=== PATIENT | male | born 1970 | race Caucasian/White ===

== ENCOUNTER 2020-09-18 10:34 | Outpatient (REF) | payer OTHER, SELFPAY ==
--- NOTE | 2020-09-18 10:40 | XR_ITS ---
EXAMINATION: XR SHOULDER, RIGHT CLINICAL INFORMATION: Pain in right shoulder COMPARISON: None TECHNIQUE: Three views of the right shoulder. FINDINGS: No fracture or dislocation. The glenohumeral joint is well aligned. The joint space is maintained. The acromioclavicular joint is intact with mild hypertrophic degenerative change. The visualized lung is clear. The visualized ribs are intact. XR/XR shoulder RT min 2V IMPRESSION: Mild degenerative changes of the right acromioclavicular joint.
== END 2020-09-18 10:35 | disposition home or self-care (01) ==
LOC: HO.HOSX 10:34
PROVIDERS: Visit Provider Orthopaedic Surgery
DX: S46.001A Unspecified injury of muscle(s) and tendon(s) of the rotator cuff of right shoulder, initial encounter (principal); X58.XXXA Exposure to other specified factors, initial encounter; Y93.9 Activity, unspecified; Y92.9 Unspecified place or not applicable; Y99.8 Other external cause status
CPT/HCPCS: 73030; 99202

== ENCOUNTER → 2020-11-21 10:41 | Outpatient (BNVA) | payer OTHER, SELFPAY | PROVIDERS: Visit Provider Orthopaedic Surgery | DX: S46.111D Strain of muscle, fascia and tendon of long head of biceps, right arm, subsequent encounter (principal); S46.001D Unspecified injury of muscle(s) and tendon(s) of the rotator cuff of right shoulder, subsequent encounter | CPT/HCPCS: 20610; 99212; J1040 ==

== ENCOUNTER 2020-12-21 13:00 | Outpatient (RCR) | payer OTHER, SELFPAY ==
--- NOTE | 2020-09-26 14:08 | MHC.PT.EP ---
[facility] [place] Office [place] Office [place] Office [address] Nicole Anderson [address] [phone] F: [phone] F: [phone] F: [phone] F: [phone] Physical Therapy Plan of Care Date of Evaluation: 09/26/20 Date of Injury: 08/01/2020 Diagnosis: right shoulder pain, right long head biceps rupture. Assessment: Pt has reduced shoulder ROM, strength, and functional mobility. The patient also has painful motion over 90 degrees which limits personal hygiene and functional reaching. He is a good candidate for skilled PT. Some of his pain may also be from his AC joint which I will monitor. I will use PROM and manual therapy, AROM, pain free strengthening, and modalities as needed. Frequency and Duration: The patient will be seen 2x/week Short Term Goals: 1. Improve AROM greater than 100 degrees of shoulder abduction for functional reaching. 2. Pt to be able to move into functional ER motion greater than 60 degrees for personal hygiene. [place] Agent Goals: 4 weeks - The patient to have greater than 160 degrees of flexion and abduction to show imroved functional ROM. 4 weeks ? The patient to have 5/5 strength with flexion and abduction to demonstrate functional strength 4 weeks ? The patient to be able to return to all functional reaching, self care ADL's without any limitation from pain or loss of ROM. Treatment Plan: Modalities to reduce pain, spasms and effusion. Manual therapy to restore motion and function. Therapeutic exercise to improve strength and flexibility. Neuromuscular re-education for posture and balance. Therapeutic activities to return to functional activities of daily living. Please sign and return to therapist. Thank you for your referral.
--- NOTE | 2020-12-21 15:14 | MHC.PT.DC ---
[facility] [place] Office [place] Office [address] Orestes Anderson 140 [facility] [phone] F: [phone] F: [phone] F: [phone] F: [phone] Physical Therapy Discharge Report Diagnosis: right shoulder pain, right long head biceps rupture. Date of Surgery: Date of Evaluation: 09/26/20 Date of Discharge: 12/21/20 Treatments to Date: 15 Cancellations to Date: 0 No Shows to Date: 0 Discharge Status: Achieved Goals Improved Function Independent with HEP Discharge Summary: Please see tests and measures above. Pt is functionally independent. He has returned to high level overhead activity. He has normal strength in his shoulder and elbow, and nearly normal ROM in his shoulder. Pt was given an extensive HEP with 3 levels of therband ( red, yellow, green) He was given HEP consisting mostly of overhead endurance activities. I believe the patient to be independent with his HEP. He shows good form with his exercise program. He is d/c today to a HEP to continue his HEP with focus on end range movement, and overhead endurance. The patient has verbalized understanding of this education. He will return to his referring physician on January 16 2021 for f/u. He has been instructed to contact us if his condition worsens. Electronically signed by: Izabela Mercedes PT DPT Please sign and return to therapist. Thank you for your referral.
== END 2021-01-11 15:22 | disposition other institution (70) ==
LOC: HO.PT 13:00
PROVIDERS: Visit Provider Orthopaedic Surgery
DX: S46.001D Unspecified injury of muscle(s) and tendon(s) of the rotator cuff of right shoulder, subsequent encounter (principal)
CPT/HCPCS: 97033; 97110; 97162; 97530; 97535

== ENCOUNTER → 2021-01-16 09:47 | Outpatient (BNVA) | payer OTHER, SELFPAY | PROVIDERS: Visit Provider Orthopaedic Surgery | DX: S46.111D Strain of muscle, fascia and tendon of long head of biceps, right arm, subsequent encounter (principal); S45.001 Unspecified injury of axillary artery, right side | CPT/HCPCS: 99212 ==

== ENCOUNTER 2021-03-06 13:00 | Outpatient (RCR) | payer OTHER, SELFPAY ==
--- NOTE | 2021-01-31 14:05 | MHC.PT.EP ---
[facility] [place] Office [place] Office [place] Office [address] Orestes Anderson [address] [phone] F: [phone] F: [phone] F: [phone] F: [phone] Physical Therapy Plan of Care Date of Evaluation: 01/31/21 Date of Surgery: N/A Diagnosis: Unspecified injury of the muscles and tendons of the rotator cuff in the right shoulder Assessment: Dallas is a 50-year-old man being referred to physical therapy with pain in his right shoulder. He demonstrates impaired R shoulder ROM, decreased R UE and scapular strength, impaired posture, and a possible retracted R bicep tendon. Pt would benefit from skilled physical therapy to address the aforementioned impairments and increase his tolerance to overhead reaching, lifting and carrying items, and sleeping through the night in order to improve his quality of life and facilitate his return to work. Dallas is motivated to participate in physical therapy in order to return to his PLOF. Frequency and Duration: The patient will be seen 2 visits per week for 5 weeks. Short Term Goals: -Pt will report <2/10 pain at rest to allow him to sleep through the night within 3 weeks. -Pt will be able to reach over head to wash his hair with a pain of no more than 2/10 in 3 weeks. [place] Worker Goals: -Pt will be able to lift >15 lbs. 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 -Pt will be independent with [facility] for symptom management and maintenance following discharge within 5 weeks. Treatment Plan: Modalities to reduce pain, spasms and effusion. Manual therapy to restore motion and function. Therapeutic exercise to improve strength and flexibility. Neuromuscular re-education for posture and balance. Therapeutic activities to return to functional activities of daily living. Electronically signed by: Jazzmine Renteria PT, DPT Please sign and return to therapist. Thank you for your referral.
--- NOTE | 2021-04-03 15:39 | MHC.PT.DC ---
[facility] [place] Office [place] Office [place] Office [address] Orestes Anderson 140 [facility] [phone] F: [phone] F: [phone] F: [phone] F: [phone] Physical Therapy Discharge Report Diagnosis: Unspecified injury of the muscles and tendons of the rotator cuff in the right shoulder Date of Surgery: N/A Date of Evaluation: 01/31/21 Date of Discharge: 04/03/21 Treatments to Date: 7 Cancellations to Date: 0 No Shows to Date: 0 Discharge Status: Achieved Goals Improved Function Independent with HEP Discharge Summary: Dallas has improved and is independent with all HEPs. He has therefore been d/c from therapy. Electronically signed by: Jazzmine Renteria PT DPT Please sign and return to therapist. Thank you for your referral.
== END 2021-04-03 15:40 | disposition other institution (70) ==
LOC: HO.PT 13:00
PROVIDERS: Visit Provider Orthopaedic Surgery
DX: S46.001D Unspecified injury of muscle(s) and tendon(s) of the rotator cuff of right shoulder, subsequent encounter (principal)
CPT/HCPCS: 97110; 97112; 97140; 97161; 97530

== ENCOUNTER → 2021-03-12 12:36 | Outpatient (BNVA) | payer OTHER, SELFPAY | PROVIDERS: Visit Provider Orthopaedic Surgery | DX: S46.111D Strain of muscle, fascia and tendon of long head of biceps, right arm, subsequent encounter (principal); S46.001D Unspecified injury of muscle(s) and tendon(s) of the rotator cuff of right shoulder, subsequent encounter | CPT/HCPCS: 99212 ==

== ENCOUNTER → 2021-04-30 12:27 | Outpatient (BNVA) | payer OTHER, SELFPAY | PROVIDERS: Visit Provider Orthopaedic Surgery | DX: S46.001D Unspecified injury of muscle(s) and tendon(s) of the rotator cuff of right shoulder, subsequent encounter (principal) | CPT/HCPCS: 99212 ==

== ENCOUNTER 2021-05-20 13:25 | Outpatient (REF) | payer OTHER, SELFPAY ==
--- NOTE | ~2021-05-20 | MR_ITS ---
EXAMINATION: MR SHOULDER WITH CONTRAST, RIGHT CLINICAL INFORMATION: Impingement syndrome of right shoulder. Patient reports lifting and felt a pop 07/22/2020 with arm swelling. Status post PT. Arm keeps swelling with activities, occasional pain, soreness, muscle spasm. COMPARISON: XR right shoulder 09/18/2020. MRI right shoulder from [facility] 08/25/2020. TECHNIQUE: MRI of the shoulder was performed following the intra-articular administration of a dilute gadolinium-containing solution (arthrogram) on a high-field scanner. FINDINGS: ROTATOR CUFF: There is no significant change in distal supraspinatus tendinosis with a small interstitial insertional tear measuring 4 mm transverse. This is difficult to identify and measure on the orthogonal images. The infraspinatus, teres minor, and subscapularis tendons are intact. No muscle atrophy or fatty infiltration. BICEPS: Complete tear and retraction of the long head of the biceps tendon is again noted. CORACOACROMIAL ARCH: The undersurface of the acromion is curved, slightly laterally downsloping, with no subacromial spur. There is no change in moderate osteoarthritis of the acromioclavicular joint. LABRUM/CAPSULE: The superior labrum is diffusely attenuated. This could be related to degeneration and possible chronic tear. The anterior and posterior labrum are grossly intact. The capsular structures are unremarkable. GLENOHUMERAL JOINT/MARROW: There is focal cartilage thinning in the superolateral humeral head. The glenoid cartilage appears intact. MR/MR shoulder RT w con IMPRESSION: 1. No significant change in mild distal supraspinatus tendinosis and small interstitial insertional tear. 2. No change in complete tear and retraction of the long head of the biceps tendon. 3. Diffuse superior labral attenuation which could be related to degeneration and possible chronic tear. 4. Focal mild arthrosis in the superolateral humeral head.
--- NOTE | ~2021-05-20 | FL_ITS ---
EXAMINATION: XR ARTHROGRAM SHOULDER, RIGHT CLINICAL INFORMATION: Right shoulder pain. COMPARISON: Arleta unsuccessful right shoulder arthrogram. TECHNIQUE: Following explaining fluoroscopy-guided right shoulder arthrogram procedure, benefits and risk, a written consent was obtained. Patient was placed supine on fluoroscopy table and anterior aspect of shoulder was cleaned and draped in usual sterile manner. 1% lidocaine was injected at the puncture site. A 22-gauge needle was inserted from the skin into the anterior glenohumeral joint space and 2 mL of nonionic contrast was injected. After confirming contrast into the joint space, 0.1 mL of gadolinium was dilated with 10 mL of 1% lidocaine and saline combination was injected and needle withdrawn. Patient tolerated procedure extremely well. Simple bandage applied at puncture site. FINDINGS: On a single obtained of anterior right shoulder joint reveals maintained and normal joint space. There is hard and contrast within the anterior glenohumeral joint. Fluoroscopy guided right arthrogram performed with injection of diluted gadolinium. Patient was sent to MRI for further imaging. FLUOROSCOPY TIME: 1.3 minutes DOSE AREA PRODUCT: 4.890 uGy-m2 (microgray-meter squared) FL/FL arthrogram shoulder RT IMPRESSION: Successful fluoroscopy-guided right shoulder arthrogram performed for MRI.
== END 2021-05-20 13:26 | disposition home or self-care (01) ==
LOC: HO.XRAY 13:25
PROVIDERS: Visit Provider Orthopaedic Surgery
DX: M75.41 Impingement syndrome of right shoulder (principal); S46.001D Unspecified injury of muscle(s) and tendon(s) of the rotator cuff of right shoulder, subsequent encounter
CPT/HCPCS: 23350; 73040; 73222; A9585

== ENCOUNTER → 2021-07-18 13:57 | Outpatient (BNVA) | payer OTHER, SELFPAY | PROVIDERS: Visit Provider Orthopaedic Surgery | DX: S46.111D Strain of muscle, fascia and tendon of long head of biceps, right arm, subsequent encounter (principal); S46.001D Unspecified injury of muscle(s) and tendon(s) of the rotator cuff of right shoulder, subsequent encounter | CPT/HCPCS: 99212 ==

== ENCOUNTER → 2021-08-19 12:23 | Outpatient (BNVA) | payer OTHER, SELFPAY | PROVIDERS: Visit Provider Physician Assistant | DX: Z01.818 Encounter for other preprocedural examination (principal); M19.011 Primary osteoarthritis, right shoulder; S46.001D Unspecified injury of muscle(s) and tendon(s) of the rotator cuff of right shoulder, subsequent encounter; S46.111D Strain of muscle, fascia and tendon of long head of biceps, right arm, subsequent encounter; X58.XXXD Exposure to other specified factors, subsequent encounter; F17.210 Nicotine dependence, cigarettes, uncomplicated | CPT/HCPCS: 99212 ==

== ENCOUNTER 2021-08-21 10:03 | Day surgery (SDC) | payer OTHER, MEDICAID, SELFPAY ==
[2021-08-15 12:24] VITALS: BMI 23.3
--- NOTE | 2021-08-20 09:10 | P.CONAN_ITS ---
Documented by User: Mary Willingham NP 08/20/21 15:33 HPI - Anesthesia Eval Consult details Narrative: 51yo M for Right Shoulder Arthroscopy, possible Rotator Cuff Repair T/C to pt to verify medical hx. No PCP/Insurance prior to moving here 1 year ago, therefore no routine medical eval. Appt to see new PCP at [facility] next month. Denies CP/SOB. Was working prior to injury. Case reviewed with Dr Vaughn. Labs and EKG DOS. PMFSH Active Problems Active Problems: All Active Problems (Updated 08/15/21 @ 12:26 by Padmini Perez RN) Injury of right rotator cuff (Acute) Labral tear of long head of right biceps tendon (Acute) Past Medical History Medical History Arthritis Smoker Surgical History Surgical History No pertinent past surgical history Social History Social History (Updated 08/19/21 @ 12:33 by Giorgio Issa) Patient Tobacco Use Status: Current everyday Tobacco user Tobacco use type: Cigarette Cigarettes Per Day: 10 Years Smoked: 33 Smoked in Last 30 Days: Yes Use of substances other than those prescribed or required for medical reasons: No Have you been hit, kicked, punched, or otherwise hurt by someone within the past year? If so, by whom?: No Are you DNR?: No Advance Directives: No Advance Directives Information Provided: Yes (HCP form & informational brochure mailed per patient's request) Advance Directives on File: No Recently lost weight without trying: No Eating poorly because of decreased appetite: No Nutrition Risks: No Nutritional Risk Poor oral hygiene: No (has some broken teeth) Current occupation: [employer] Allergies Allergy/AdvReac Type Severity Reaction Status Date / Time No Known Allergies Allergy Verified 08/19/21 12:34 Exam Exam Date and Time: August 20, 2021 0910 Height,Weight and Vital Signs: Height 5 ft 6 in Weight 65.771 kg Assessment and Plan Assessment Anesthesia Assessment: Chart Reviewed Documented by User: Katelyn Quintero MD 08/21/21 10:39 PMF Past Medical History Medical History Arthritis Smoker Surgical History Surgical History No pertinent past surgical history Social History Social History (Updated 08/19/21 @ 12:33 by Giorgio Issa) Patient Tobacco Use Status: Current everyday Tobacco user Tobacco use type: Cigarette Cigarettes Per Day: 10 Years Smoked: 33 Smoked in Last 30 Days: Yes Use of substances other than those prescribed or required for medical reasons: No Have you been hit, kicked, punched, or otherwise hurt by someone within the past year? If so, by whom?: No Are you DNR?: No Advance Directives: No Advance Directives Information Provided: Yes (HCP form & informational brochure mailed per patient's request) Advance Directives on File: No Recently lost weight without trying: No Eating poorly because of decreased appetite: No Nutrition Risks: No Nutritional Risk Poor oral hygiene: No (has some broken teeth) Current occupation: [employer] Allergies Allergy/AdvReac Type Severity Reaction Status Date / Time No Known Allergies Allergy Verified 08/19/21 12:34 Exam Airway Mallampati Class: II TM Dist: >3cm Neck ROM: Full
[2021-08-21] VITALS (13 sets, daily range): BP systolic 127–161; BP diastolic 77–99; PULSE 76–103; RESP 16–20; TEMP 36.1–37.1; O2SAT 92–98; BMI 25.8
--- NOTE | 2021-08-21 | ECG_ITS ---
Test Reason : preop Blood Pressure : / mmHG Vent. Rate : 104 BPM Atrial Rate : 104 BPM P-R Int : 120 ms QRS Dur : 090 ms QT Int : 354 ms P-R-T Axes : 042 053 061 degrees QTc Int : 465 ms Sinus tachycardia with occasional Premature ventricular complexes Nonspecific ST abnormality Abnormal ECG No previous ECGs available Referred By: Mary Willingham Electronically Signed By:HARISH SALEH MD
[2021-08-21 10:33] LABS: Hematocrit 48.2 % (42-52); Hemoglobin 16.6 g/dl (14.0-18.0); Mean Corpuscular HGB Conc 34.4 g/dl (31.0-36.0); Mean Corpuscular Volume 98.8 fL (80-98); Mean Platelet Volume 9.5 fL (9.4-12.4); Platelet Count 202 X10*3/uL (160-400); Red Blood Count 4.88 X10*6/uL (4.60-5.80); Red Cell Distribution Width 13.6 % (11.0-16.0); White Blood Count 6.9 X10*3/uL (4.8-10.8)
--- NOTE | 2021-08-21 10:39 | MHC.SHP ---
Pre-Procedural Eval Section A Date of Service: 08/21/21 The patient is an INPATIENT: No Changes since office visit: Yes Patient answered all questions; No Cold of Flu in the past 2 weeks, No New Medical Problems and No Changes in Medication The History & Physical has been completed within 30 days and I have reviewed it.: Yes Section B Chief Complaint: strain of muscle Allergies: Allergies Allergy/AdvReac Type Severity Reaction Status Date / Time No Known Allergies Allergy Verified 08/19/21 12:34 Plan I have reviewed the history and physical and performed a pertinent physical examination on my patient. No changes have occurred unless specified.
[2021-08-21 10:47] LABS: Anion Gap 16 (12-20); Blood Urea Nitrogen 13 mg/dL (9-16); Calcium 9.5 mg/dL (8.4-10.2); Carbon Dioxide 23 mmol/L (22-29); Chloride 104 mmol/L (96-108); Creatinine Clr Calc Pharmacy 76.7; Estimated Glomerular Filt Rate > 60; Glucose Fasting 107 mg/dL (60-99); Sodium 139 mmol/L (135-145)
[2021-08-21] MEDS: Lactated Ringers 1,000 ML 100 ML IVCONT (10:51)
[2021-08-21] MEDS: oxyCODONE HCl Immed Release 5 MG TABLET 10 MG PO (13:35)
--- NOTE | 2021-08-21 14:10 | W.PM.OPN ---
Operative Note Operative Note Date of Service: 08/21/21 Narrative: Pre-op diagnosis: right shoulder internal derangement Post-op diagnosis: other (R shoulder rtc tear, ACJ arthritis;JESUS MANUEL) Procedure: Right shoulder rtc repair iwth SAD and DCE Implants: Pulliam and Nephew Helacoil x 2 Surgeon: Cholo Ernst MD Anesthesia: GETA and regional Was an Public Health Sanitarian Technician used for this Procedure?: Yes Public Health Sanitarian Technician: Mckenzie Huitron Estimated blood loss (mL): 10 IV fluids (mL): 1,000 Pathology: none sent Condition: stable Disposition: PACU Procedure in detail: Patient was brought to the operating room and placed the the beach chair position. All bony prominences were well padded and the limb was prepped and draped in standard sterile fashion. A time out was called to identify proper site, proper procedure and proper surgeon. IV antibiotics per weight were administered. I began by making a posterolateral stab incision with a 15 blade. A blunt trochar was placed into the glenohumeral joint and I insufflated the joint with saline and a 30 degree arthroscope was placed. I established an outside- in anterior portal just distal to the biceps tendon. I then began my inspection of the glenohumeral joint. The biceps was absent from prior injury. The cartilage and labral surfaces were normal. Subscapularis and MGHL were intact and normal. There was a suggestion of an undersurface infraspinatus RTC tear with associated cystic changes of the posterior footprint. I removed the trochar and entered the subacromial space. A direct lateral portal was then established and I performed a bursectomy. The cuff was then examined. There was a diminished SAS and the CA was resected and a 5 mm SAD was performed. The ACJ was insepected and the distal clavicle was arthrititic and a 6 mm DCE was performed via the anterior portal with a franklin. The infraspinatus was further examined adn there was a small full thickness rtc tear. A medial helacoil anchor was placed and, using a scorpion, 4 sutures were shuttled through the cuff and then brought to a lateral knotless Helacoil after bony debridement with a franklin was done to stimulate bleeding. I had excellent reproduction of the footprint anatomy. Once I was satisfied with the repair final images were captured and I removed all instrumentation. Portals were closed with nylon. Patient was placed in an abduction sling, extubated and brought to the recovery room in stable condition. There were no known complications.
== END 2021-08-21 17:20 | disposition home or self-care (01) ==
PROVIDERS: Nurse Practitioner; Visit Provider Orthopaedic Surgery
PROC: (CPT 29805; principal; 2021-08-21 11:40)
DX: S46.011A Strain of muscle(s) and tendon(s) of the rotator cuff of right shoulder, initial encounter (principal); S46.111A Strain of muscle, fascia and tendon of long head of biceps, right arm, initial encounter; M75.42 Impingement syndrome of left shoulder; M19.011 Primary osteoarthritis, right shoulder; X58.XXXA Exposure to other specified factors, initial encounter; Y93.9 Activity, unspecified; Y92.69 Other specified industrial and construction area as the place of occurrence of the external cause; Y99.0 Civilian activity done for income or pay; M19.90 Unspecified osteoarthritis, unspecified site; F17.210 Nicotine dependence, cigarettes, uncomplicated
CPT/HCPCS: 29827; 29826; 29824; 36415; 80048; 85027; 93005; C1713; J0171; J0690; J1100; J2250; J2405; J3010

== ENCOUNTER → 2021-08-23 09:02 | Outpatient (BNVA) | payer OTHER, MEDICAID, SELFPAY | PROVIDERS: Visit Provider Physician Assistant | DX: Z98.890 Other specified postprocedural states (principal); F17.210 Nicotine dependence, cigarettes, uncomplicated; Z48.01 Encounter for change or removal of surgical wound dressing | CPT/HCPCS: 99212 ==

== ENCOUNTER → 2021-08-30 09:11 | Outpatient (BNVA) | payer OTHER, SELFPAY | PROVIDERS: Visit Provider Orthopaedic Surgery | DX: S46.111D Strain of muscle, fascia and tendon of long head of biceps, right arm, subsequent encounter (principal); Z98.890 Other specified postprocedural states | CPT/HCPCS: 99212 ==

== ENCOUNTER → 2021-09-06 11:39 | Outpatient (BNVA) | payer OTHER, SELFPAY | PROVIDERS: PCP Family Medicine; Visit Provider Orthopaedic Surgery | DX: Z98.890 Other specified postprocedural states (principal) | CPT/HCPCS: 99212 ==

== ENCOUNTER 2021-09-30 12:51 | Outpatient (REF) | payer OTHER, SELFPAY ==
--- NOTE | ~2021-09-30 | XR_ITS ---
EXAMINATION: XR CHEST CLINICAL INFORMATION: Chronic congestion. Nicotine dependence. COMPARISON: None TECHNIQUE: 2 views of the chest were obtained. FINDINGS: No significant abnormality is noted involving the heart, lungs, mediastinum, bony thorax or soft tissues. A linear scar or atelectasis present in the lingula. Mild degenerative changes are present in the spine. XR/XR chest 2V IMPRESSION: No acute intrathoracic disease.
[2021-09-30 13:08] LABS: MANUAL DIFF FLAG NO
[2021-09-30 13:24] LABS: Basophils Absolute Auto 0.1 X10*3/uL (0.0-0.2); Basophils Percent Auto 0.7 % (0-2); Eosinophils Absolute Auto 0.1 X10*3/uL (0.0-0.4); Eosinophils Percent Auto 1.2 % (0-4); Hematocrit 47.6 % (42.0-52.0); Imm Gran Abs Auto 0.01 X10*3/uL (0.00-0.03); Imm Gran Pct Auto 0.1 % (0.0-0.4); Lymphocytes Absolute Auto 2.8 X10*3/uL (1.2-4.9); Mean Corpuscular HGB Conc 33.6 g/dl (31.0-36.0); Mean Corpuscular Hemoglobin 33.7 pg (27.0-33.0); Mean Corpuscular Volume 100.2 fL (80.0-98.0); Mean Platelet Volume 9.6 fL (9.4-12.4); Monocytes Absolute Auto 0.6 X10*3/uL (0.1-1.2); Neutrophils Absolute Auto 3.1 x10*3/uL (2.0-8.3); Platelet Count 210 X10*3/uL (160-400); Red Blood Count 4.75 X10*6/uL (4.60-5.80); Red Cell Distribution Width 12.9 % (11.0-16.0); White Blood Count 6.7 X10*3/uL (4.8-10.8)
[2021-09-30 13:48] LABS: Alanine Aminotransferase 65 U/L (0-40); Albumin Level 4.4 g/dL (3.5-5.0); Alkaline Phosphatase 92 U/L (39-117); Anion Gap 17 (12-20); Aspartate Amino Transferase 62 U/L (5-37); Bilirubin Total 0.4 mg/dL (0.0-1.0); Blood Urea Nitrogen 8 mg/dL (9-16); Calcium 9.7 mg/dL (8.4-10.2); Carbon Dioxide 25 mmol/L (22-29); Chloride 104 mmol/L (96-108); Cholesterol 209 mg/dL; Estimated Glomerular Filt Rate > 60; Glucose Fasting 87 mg/dL (60-99); HDL Cholesterol 59 mg/dL; LDL Cholesterol Calculated 127 mg/dl; Potassium 4.4 mmol/L (3.3-5.1); Rheumatoid Factor < 15.0 IU/mL (<15.0); Sodium 142 mmol/L (135-145); Total Protein 7.4 g/dL (6.5-8.0); Triglycerides 118 mg/dL
[2021-09-30 14:08] LABS: TSH reflex Free T4 1.14 uIU/mL (0.32-4.0)
[2021-09-30 14:11] LABS: Erythrocyte Sedimentation Rate 3 MM/HR (0-15)
[2021-09-30 15:11] LABS: Appearance Urine CLEAR; Color Urine YELLOW; Glucose Urine UA NEG (NEG); Leukocyte Esterase Urine NEG (NEG); Nitrite Urine NEG (NEG); Specific Gravity - Urine >= 1.030 (1.005-1.025); Urine Blood NEG (NEG); Urine Ketones NEG (NEG); Urine Protein NEG (NEG-TRACE)
== END 2021-09-30 12:52 | disposition home or self-care (01) ==
LOC: HO.LAB 12:51
PROVIDERS: PCP Family Medicine; Visit Provider Family Medicine
DX: Z00.00 Encounter for general adult medical examination without abnormal findings (principal); M25.551 Pain in right hip; R06.2 Wheezing; R09.89 Other specified symptoms and signs involving the circulatory and respiratory systems; F17.200 Nicotine dependence, unspecified, uncomplicated
CPT/HCPCS: 36415; 71046; 80053; 80061; 81003; 84443; 85025; 85652; 86431

== ENCOUNTER → 2021-10-03 09:26 | Outpatient (BNVA) | payer OTHER, SELFPAY | PROVIDERS: PCP Family Medicine; Visit Provider Orthopaedic Surgery | DX: Z98.890 Other specified postprocedural states (principal) | CPT/HCPCS: 99212 ==

== ENCOUNTER 2021-11-05 15:36 | Outpatient (REF) | payer OTHER, SELFPAY ==
[2021-11-05 19:01] LABS: Influenza A PCR NEGATIVE (Negative); Influenza B PCR NEGATIVE (Negative); Resp Syncy Virus RNA Qual PCR NEGATIVE (Negative); SARS COV2 PCR INHOUSE NEGATIVE (Negative)
== END 2021-11-05 15:37 | disposition home or self-care (01) ==
LOC: HO.LAB 15:36
PROVIDERS: Visit Provider Family Medicine
DX: Z20.822 Contact with and (suspected) exposure to COVID-19 (principal); B34.9 Viral infection, unspecified
CPT/HCPCS: 0241U

== ENCOUNTER → 2021-11-14 11:10 | Outpatient (BNVA) | payer OTHER, SELFPAY | PROVIDERS: PCP Family Medicine; Visit Provider Orthopaedic Surgery | DX: Z98.890 Other specified postprocedural states (principal) | CPT/HCPCS: 99212 ==

== ENCOUNTER 2022-01-01 14:00 | Outpatient (RCR) | payer OTHER, SELFPAY ==
--- NOTE | 2021-08-28 15:05 | MHC.PT.EP ---
[facility] [place] Office [place] Office [place] Office [address] Orestes Anderson [address] [phone] F: [phone] F: [phone] F: [phone] F: [phone] Physical Therapy Plan of Care Date of Evaluation: Date of Surgery: Diagnosis: s/p colmenares and nephew RTC repair w SAD and DCE Assessment: 51 y/o RHD male s/p R RTC repair (colmenares and nephew), SAD and DCE on 08/21/21. Of note, this is from a work injury about one year ago when he lifted a spool of paper onto a machine and felt a pop and his bicep became swollen. He has a chronic bicep tear and has undergone 2 other bouts of PT prior to surgery. 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 He is currently limited with ADL's, reaching, lifting, grooming, and sleeping. Examination shows decreased R shoulder A/PROM, decreased R shoulder strength, decreased elbow AROM, normal cervical ROM, pain, and impaired functional mobility. Recommend PT 2x/week for 12 weeks to address impairments, implement HEP, and optimize functional mobility. Will follow Rotation Medical Patch protocol. Frequency and Duration: The patient will be seen 2x/week for 12 weeks Short Term Goals: 6 weeks 1. I with HEP 2. Pt will demonstrate shoulder AROM to 75% of WNL all planes 3. Pt will be able to perform grooming with pain < 3/10 Shelter Goals: 12 weeks 1. I with HEP and self management of sx 2. Demonstrate R shoulder strength to 4/5 throughout to facilitating reaching overhead 3. Pt will be able to lift >25# from knees to hips with pain < 3/10 and proper mechanics Treatment Plan: Modalities to reduce pain, spasms and effusion. Manual therapy to restore motion and function. Therapeutic exercise to improve strength and flexibility. Neuromuscular re-education for posture and balance. Therapeutic activities to return to functional activities of daily living. Electronically signed by: Peri Armstrong PT Please sign and return to therapist. Thank you for your referral.
--- NOTE | 2021-11-12 15:39 | MHC.PT.RE ---
[facility] [place] Office [place] Office [place] Office [address] Orestes Anderson [address] [phone] F: [phone] F: [phone] F: [phone] F: [phone] Physical Therapy Re-evaluation Diagnosis: s/p RTC repair w SAD and DCE Date of Surgery: 08/21/21 Date of Evaluation: 08/28/21 Treatments to Date: 16 Cancellations to Date: 3 No Shows to Date: 0 Subjective: I was sick the past week or so I wasn't able to make the appointments. My shoulder is still sore but it is getting better and I am using it more. I can dress myself now. Pain Score: 1-2 Pain Location: R shoulder Objective Measures: R shoulder AROM in supine: -Flexion: 155 (sore) -ER (at 90*abd) 75* -IR (at 45*abd) 70* -AA Abduction 140, Active Abduction 120 -Standing active shoulder flexion: 126* MMT: shoulder flexion 4-/5, shoulder abd 4-/5, triceps 4/5, biceps 4/5, shoulder ER 4-/5, shoulder IR 4/5 Assessment: He is 12 weeks post-operative status of rotator cuff repair with concomitant subacromial decompression.His overall his pain ranges from 0-5/10 and increases with activity. He reports now being able to perform dressing and grooming, but still reports unable to lift and/or carry objects such as groceries in his right hand. He requires minimal assistance from his girlfriend for tasks and chores around the house such as carrying laundry basket. He demonstrates improved AROM in supine, but he still has some limitations in standing. He is compliant with HEP. He would benefit from 2x/wk for an additional 4 wks to progress AROM against gravity and strength per protocol as well as improve functional mobility to promote independence with home-related tasks. Short Term Goals: 6 weeks 1. I with HEP - GOAL MET 2. Pt will demonstrate shoulder AROM to 75% of WNL all planes - IN PROGRESS, CURRENTLY 75%supine, but 50% standing 3. Pt will be able to perform grooming with pain < 3/10 - IN PROGRESS, CURRENTLY 0-4/10 4. Pt will be able to perform active shoulder flexion in standing to 140* without shrug to faciliate reaching into cabinets Senior Risk Manager Goals: 12 weeks 1. I with HEP and self management of sx - IN PROGRESS 2. Demonstrate R shoulder strength to 4/5 throughout to facilitating reaching overhead - IN PROGRESS 3. Pt will be able to lift >25# from knees to hips with pain < 3/10 and proper mechanics - IN PROGRESS 4. Pt will be able to carry 10# bag of groceries with R UE wiht pain < 3/10 Frequency and Duration: The patient will be seen 2x/week for an additional 4 weeks Treatment Plan: Therapeutic Exercise Dynamic Therapeutic Activities Neuromuscular Re-ed Joint Mobilization Home Exercise Program Patient Education Reviewed/ Agreed with Student Documentation: N/A Therapist: . Electronically signed by: Peri Armstrong PT Please sign and return to therapist. Thank you for your referral.
--- NOTE | 2022-01-02 13:26 | MHC.PT.DC ---
[facility] [place] Office [place] Office [place] Office [address] Orestes Anderson [address] [phone] F: [phone] F: [phone] F: [phone] F: [phone] Physical Therapy Discharge Report Diagnosis: s/p RTC repair w SAD and DCE Date of Surgery: 08/21/21 Date of Evaluation: 12/09/21 Date of Discharge: 01/02/22 Treatments to Date: 25 Cancellations to Date: 3 No Shows to Date: 0 Discharge Status: Achieved Goals Improved Function Independent with HEP Discharge Summary: Pt demonstrates improved shoulder AROM, improved strength and improved functional mobility. He is I wtih safe gym routine for upper body and is d/c at this time. Electronically signed by: Peri Armstrong PT Please sign and return to therapist. Thank you for your referral.
== END 2022-01-02 13:27 | disposition home or self-care (01) ==
LOC: HO.PT 14:00
PROVIDERS: PCP Family Medicine; Visit Provider Physician Assistant
DX: S46.001D Unspecified injury of muscle(s) and tendon(s) of the rotator cuff of right shoulder, subsequent encounter (principal); S46.111D Strain of muscle, fascia and tendon of long head of biceps, right arm, subsequent encounter
CPT/HCPCS: 97110; 97140; 97161; 97164; 97530

== ENCOUNTER → 2022-01-16 11:23 | Outpatient (BNVA) | payer OTHER, SELFPAY | PROVIDERS: PCP Family Medicine; Visit Provider Orthopaedic Surgery | DX: S46.001D Unspecified injury of muscle(s) and tendon(s) of the rotator cuff of right shoulder, subsequent encounter (principal) | CPT/HCPCS: 99212 ==

== ENCOUNTER 2022-01-28 11:43 | Outpatient (REF) | payer OTHER, SELFPAY ==
[2022-01-28 13:38] LABS: Alanine Aminotransferase 58 U/L (0-40); Albumin Level 4.4 g/dL (3.5-5.0); Alkaline Phosphatase 94 U/L (39-117); Anion Gap 12 (12-20); Aspartate Amino Transferase 38 U/L (5-37); Bilirubin Total 0.9 mg/dL (0.0-1.0); Blood Urea Nitrogen 10 mg/dL (9-16); Calcium 9.6 mg/dL (8.4-10.2); Carbon Dioxide 26 mmol/L (22-29); Chloride 103 mmol/L (96-108); Estimated Glomerular Filt Rate > 60; Glucose Random 105 mg/dL (60-115); Potassium 4.1 mmol/L (3.3-5.1); Sodium 137 mmol/L (135-145); Total Protein 7.3 g/dL (6.5-8.0)
[2022-01-28 14:11] LABS: Prostate Specific Antigen Scr 4.68 ng/mL (<0.05-4.0)
== END 2022-01-28 11:44 | disposition home or self-care (01) ==
LOC: HO.WFDLDS 11:43
PROVIDERS: Visit Provider Family Medicine
DX: Z12.5 Encounter for screening for malignant neoplasm of prostate (principal); R74.8 Abnormal levels of other serum enzymes
CPT/HCPCS: 36415; 80053; 84153

== ENCOUNTER 2022-03-12 09:56 | Outpatient (REF) | payer OTHER, SELFPAY ==
--- NOTE | ~2022-03-12 | US_ITS ---
EXAMINATION: US ABDOMEN LIMITED WITH LIVER ELASTOGRAPHY CLINICAL INFORMATION: Abnormal liver enzymes COMPARISON: None. TECHNIQUE: Real-time imaging of the abdominal viscera. Noninvasive ultrasound liver fibrosis assessment is performed using Starla ElastPQ point quantification shear wave elastography (2D-SWE) with a C5-2 MHz transducer. Multiple elastography samples are obtained. FINDINGS: PANCREAS: Normal. The visualized pancreatic head and body are normal in appearance. The remainder of the pancreas is obscured from visualization by the overlying bowel gas. LIVER: Increased echogenicity of the liver parenchyma, this can be seen in the setting of hepatic steatosis or liver parenchymal disease. The right lobe measures 15.1 cm in length. The left lobe measures 9.8 cm in length. Portal flow is hepatopedal Shear wave liver elastography median stiffness is 1.38 m/s (reference: normal median stiffness is 1.3 m/s or less). IQR/median stiffness to assess sampling precision is 0.1 (reference: good quality data set is IQR/median stiffness of 0.15 or less). GALLBLADDER: Normal. The gallbladder is physiologically distended without evidence of stones, sludge, polyps, wall thickening or pericholecystic fluid. COMMON BILE DUCT: Normal in caliber measuring 0.3 cm in diameter. RIGHT KIDNEY: Normal. No hydronephrosis. No renal calculi or focal parenchymal lesions. The kidney measures 11.3 cm in maximum dimension. FREE FLUID: None. US/US abdomen bueno w elastography IMPRESSION: 1. . Increased echogenicity of the liver parenchyma, this can be seen in the setting of hepatic steatosis or liver parenchymal disease. 2. Liver elastography: In the absence of other known clinical signs, measurements rule out compensated advanced chronic liver disease. If there are known clinical signs, further testing may be needed for confirmation. REFERENCE: Society of Radiologists in Ultrasound Liver Stiffness Thresholds (2020): LIVER STIFFNESS THRESHOLDS: *Liver Stiffness equal or less than 1.3 m/s: High probability of being normal. *Liver Stiffness less than 1.7 m/s: In the absence of other known clinical signs, rules out compensated advanced chronic liver disease. *Liver Stiffness 1.7-2.1 m/s: Suggestive of compensated advanced chronic liver disease but need further test for confirmation. *Liver Stiffness over 2.1 m/s: Rules in compensated advanced chronic liver disease. *Liver Stiffness over 2.4 m/s: Suggestive of clinically significant portal hypertension. QUALITY OF DATA SET: *IQR/Median value equal or less than 0.15 implies a quality data set. *IQR/Median value over 0.15 implies a poor quality data set. SIGNIFICANT CHANGE FROM PRIOR EXAM: Significant change if liver stiffness measurement is 10% or greater from prior exam. OTHER CONSIDERATIONS: The stage of liver fibrosis may be overestimated in the setting of acute hepatitis, liver inflammation, elevated liver function tests, hepatic vascular congestion, obstructive cholestasis, non-fasting state, and infiltrative diseases such as amyloidosis and lymphoma. In some patients with NAFLD, the liver stiffness thresholds for compensated advanced chronic liver disease may be lower. In causes other than viral hepatitis and NAFLD, liver stiffness thresholds are not well established.
== END 2022-03-12 09:57 | disposition home or self-care (01) ==
LOC: HO.US 09:56
PROVIDERS: Visit Provider Family Medicine
DX: R74.8 Abnormal levels of other serum enzymes (principal); F10.10 Alcohol abuse, uncomplicated
CPT/HCPCS: 76705; 76981

== ENCOUNTER 2022-03-26 14:00 | Outpatient (RCR) | payer OTHER, SELFPAY ==
--- NOTE | 2022-02-24 15:31 | MHC.PT.EP ---
[facility] [place] Office [place] Office [place] Office [address] Orestes Anderson [address] [phone] F: [phone] F: [phone] F: [phone] F: [phone] Physical Therapy Plan of Care Date of Evaluation: Date of Surgery: 08/21/21 Diagnosis: Right shoulder RTC repair with SAD and DCE Assessment: 51 YO MALE REF TO PT W H/O SUSTAINING A Rt SH INJURY AT WORK AND S/P Right shoulder RTC repair with SAD and DCE ON 08/21/21; HE HAD A POST OP COURSE OF PT AND THEN ADDITIONAL PT 12/24 -> 01/21; HE IS REF TO PT AT CURRENT DUE TO SXS AND PAIN W > SH HEIGHT TASKS. Pt HAS NOT RTW AT CURRENT. 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 OBJECTIVE FINDINGS: DECR POSTURE, HYPOMOBILE THOR/ TIGHT LATS/ LOWER TRAP, DECR STRENGTH AND STAB IN POST RC/ SCAP, AND Rt SH END ROM DEFICITS. AT THE CURRENT , (-) INSTABILITY IN Rt SH.Pt HAS FUNCTIONAL LIMITATIONS W >4-5 MIN OF > SH HEOGHT TASKS, SL Rt, REACHING POSTERIORLY, OR DRIVING. Pt WOULD BENEFIT FROM PT TO ADDRESS THE ABOVE FINDINGS, PAIN MGMT W > SH HEIGHT TASKS, DEV SELF- SX MGMT STRATEGIES, AND ASSIST Pt W RTW/ REG ADLS. Frequency and Duration: The patient will be seen 1 x WK x 5 WKS Short Term Goals: *IMPROVE LAT/ MID-LOWER TRAP FLEXIBILIY IN 2 WKS *Pt DEMON IMPROVED Rt SH END RANGE MOTION IN 2 WKS *IMPROVE THORACIC AND HIP FLEXIBILTY IN 3 WKS *Pt'S Rt SH PAIN 2-3/10 W REG ADLs IN 3 WKS [facility]ci Goals: Pt INDEP W HEP PROGRESSION AND SELF-SX MGMT STRATEGIES IN 5 WKS Pt RESUME REG ADLs AND >SH HEIGHT TASKS W/O Rt SH SXS EVIDENT W IMPROVED SPADI SCORE BY 8-10 POINTS (AT EVAL 40/130 ) IN 5 WKS Pt INCR Rt SH COMPLEX/ UE STRENGTH BY 1 GRADE IN 5 WKS Treatment Plan: Modalities to reduce pain, spasms and effusion. Manual therapy to restore motion and function. Therapeutic exercise to improve strength and flexibility. Neuromuscular re-education for posture and balance. Therapeutic activities to return to functional activities of daily living. Electronically signed by: Yuliet Reyes PT Please sign and return to therapist. Thank you for your referral.
== END 2022-03-26 15:18 | disposition home or self-care (01) ==
LOC: HO.PT 14:00
PROVIDERS: PCP Family Medicine; Visit Provider Orthopaedic Surgery
DX: S46.001D Unspecified injury of muscle(s) and tendon(s) of the rotator cuff of right shoulder, subsequent encounter (principal)
CPT/HCPCS: 97110; 97140; 97161

== ENCOUNTER → 2022-05-16 10:49 | Outpatient (BNVA) | payer OTHER, SELFPAY | PROVIDERS: PCP Family Medicine; Visit Provider Orthopaedic Surgery | DX: S46.001D Unspecified injury of muscle(s) and tendon(s) of the rotator cuff of right shoulder, subsequent encounter (principal); Z98.890 Other specified postprocedural states | CPT/HCPCS: 99212 ==

== ENCOUNTER → 2022-08-14 10:29 | Outpatient (BNVA) | payer OTHER, SELFPAY | PROVIDERS: PCP Family Medicine; Visit Provider Orthopaedic Surgery | DX: S46.001D Unspecified injury of muscle(s) and tendon(s) of the rotator cuff of right shoulder, subsequent encounter (principal); Z98.890 Other specified postprocedural states | CPT/HCPCS: 99212 ==

== ENCOUNTER → 2022-11-20 14:27 | Outpatient (BNVA) | payer OTHER, SELFPAY | PROVIDERS: Visit Provider Orthopaedic Surgery | DX: S46.001D Unspecified injury of muscle(s) and tendon(s) of the rotator cuff of right shoulder, subsequent encounter (principal); Z98.890 Other specified postprocedural states | CPT/HCPCS: 99212 ==